=== PATIENT | female | born 1935 | race Caucasian/White ===

== ENCOUNTER 2016-10-12 06:09 | Inpatient (IN) | payer MEDICARE ==
--- NOTE | ~2016-10-12 | PRECARD ---
H&P [facility] [address] [facility] [place]. [address] NAME: SHEFALI LEE : 35 STATUS : ADM IN [facility]#: [id number] AGE: 81 ADM/REG DATE : 10/12/16 MR#: [id number] REPORT SERV DATE: 10/12/16 DICTATED BY: MERNA BRAR DATE: 10/12/16 REPORT STATUS : Draft TRANSCRIBED BY: JARED DATE: 10/12/16 DATE OF ADMISSION: 10/12/2016 HISTORY OF PRESENT ILLNESS: Ms Shefali Lee is an 81-year-old woman admitted through the emergency room, Cardiology was consulted for elevated troponin of 0.1. Ms Lee has had a long history of chronic systolic heart failure. She has had multiple admissions in the last several months for exacerbations of heart failure. Her ejection fraction is about 35%. She has mitral regurgitation, and reportedly "chronic elevation of her troponin." She came to the emergency room because of increasing dyspnea on exertion progressing to shortness of breath at rest, orthopnea and PND. She also describes palpitations, which have resolved. She had no chest discomfort. She had no stroke or stroke-like symptoms. She has had no recent bleeding. She denies melena or hematochezia. She was admitted through the emergency room, troponin was 0.1, the BNP is elevated. She has been made a [id number] and Palliative Care Service has been requested as well. She feels somewhat better since she had been admitted. She has no orthopnea or PND at this time. The history indicates she had atrial fibrillation. I have not seen any evidence of atrial fibrillation on telemetry or the EKGs that have been printed so far. PAST MEDICAL HISTORY: History of GI bleed, chronic kidney disease, hypertension, hyperlipidemia, gout, and dementia. SOCIAL HISTORY: She is , lives alone, no alcohol, no tobacco. FAMILY HISTORY: Noncontributory. MEDICINES: Lasix 60 daily, Amaryl, hydralazine 50 q.8 hours, Protonix, Tylenol, allopurinol, amlodipine 10 daily, aspirin, calcitriol, carvedilol 25 b.i.d., clopidogrel, and iron. REVIEW OF SYSTEMS: Complete review of systems was obtained, pertinent negative and unremarkable except as noted above and below. All systems addressed. PHYSICAL EXAMINATION: VITAL SIGNS: Blood pressure is about 170/70 on my exam, heart rate 90, oxygen saturation 92%. Temperature is 97.3. GENERAL: She appears chronically ill, she is quite angry about her weight in the emergency room, but is relatively easily consoled and reassured after I apologized, fully alert and oriented. HEENT: No xanthelasma; lips without cyanosis. H&P [address] [address] NAME: SHEFALI LEE : 35 STATUS : ADM IN PAT#: [id number] AGE: 81 ADM/REG DATE : 10/12/16 MR#: [id number] REPORT SERV DATE: 10/12/16 DICTATED BY: MERNA BRAR DATE: 10/12/16 REPORT STATUS : Draft TRANSCRIBED BY: JARED DATE: 10/12/16 LUNGS: Have occasional rales. CARDIOVASCULAR: A 2/6 murmur at the apex. ABDOMEN: Bowel sounds positive, normal activity, without tenderness, masses or hepatosplenomegaly. EXTREMITIES: No edema, cyanosis. SKIN: Normal turgor. MUSCULOSKELETAL: Normal muscle strength, without kyphosis/scoliosis. NEURO/PSYCH: Alert and oriented times 4, no apparent anxiety or depression. LABORATORIES: White count 10.9, hematocrit 33.5, and platelet count is 197. BUN is 24 and creatinine 2.36. BNP 1115. Troponin is 0.1 and 0.09. Telemetry, sinus rhythm. EKG is a sinus rhythm, IVCD with left anterior fascicular block and right bundle-branch block. Review of telemetry in the emergency room indicate sinus rhythm only. ASSESSMENT: Ms Lee is an 81-year-old woman with chronic systolic heart failure with exacerbation, acute on chronic. Her ejection fraction of 35%. Her creatinine is 2.36, the BNP is elevated at 1115. PLAN: 1. Obtain office records. 2. DVT prophylaxis. 3. Aggressive diuresis. 4. We will need to consider milrinone based upon her subsequent renal function. 5. Dr. Zhao has already requested palliative care and DNR status. 6. Hopefully, her symptoms will improve with more aggressive diuresis, again I will consider milrinone subsequently. Fortunately, she has been tolerating carvedilol. I will not use TRESSA inhibitor or ARB given her chronic kidney disease, with decreased creatinine clearance. REHANA/MODL Merna Brar M.D. / [id number] CC: Laurent Puentes MD
--- NOTE | ~2016-10-12 | DS ---
Discharge Summary [place] [address] [place]. [address] NAME: MEI LEE : 35 STATUS : ADM IN PAT#: [id number] AGE: 81 ADM/REG DATE : 10/12/16 MR#: [id number] REPORT SERV DATE: 10/14/16 DICTATED BY: ETTA JACKSON DATE: 10/14/16 REPORT STATUS : Draft TRANSCRIBED BY: MODL DATE: 10/14/16 ADMISSION DATE: 10/12/2016 DISCHARGE DATE: 10/14/2016 REASON FOR ADMISSION: Acute on chronic systolic heart failure exacerbation. HISTORY OF PRESENT ILLNESS: Please refer to Dr. Zhao's history and physical for complete details regarding the patient's admission. In brief, the patient was readmitted to the Hospitalist Service for her decompensated congestive heart failure. HOSPITAL COURSE: The patient had an uncomplicated hospital course. The patient has had multiple admissions since May. Dr. Zhao admitted the patient. Dr. Brar was consulted to help manage her congestive heart failure exacerbation. She was started on IV Bumex 1 mg three times a day. Dr. Zhao consulted Palliative Care given the frequency of admissions. Dr. Mancuso also met with the patient and the patient's daughter and talking about her frequent admissions. The patient and the patient's daughter have settled with hospice. She was diuresed adequately. Her CKD has been at her baseline even with aggressive diuresis. She is ambulating without any oxygen. She is requesting to go home today. She has reached maximal hospitalization. She will be discharged home in a stable condition with [facility]. DISCHARGE DIAGNOSES: Acute on chronic systolic heart failure exacerbation, now compensated atrial fibrillation, rate controlled; ischemic cardiomyopathy with an ejection fraction of 35%; chronic kidney disease stage 3/[address] Mendoza; dementia of Alzheimer's type; type 2 diabetes with hemoglobin A1c of around 6%. The patient will be discharged home today. We will ask case management to contact [facility] to initiate hospice when the patient arrives at home. DISCHARGE PROCEDURES: Consultation Dr. Sandro Brar with [facility], consultation Dr. Mancuso with Palliative Care. Chest x-ray. DISCHARGE MEDICATIONS: Include allopurinol 100 mg daily; Norvasc 10 mg daily; aspirin 81 mg daily; calcitriol 0.25 mcg daily; carvedilol 25 mg twice a day; Plavix 75 mg daily; ferrous sulfate 325 mg daily; glimepiride 2 mg daily, note the decreased from 4 as the patient's blood sugars have been in the 60s to 90s; Protonix 40 mg daily; hydralazine 50 mg every eight hours; Lasix 60 mg daily. This is Etta Jackson spending over 30 minutes on discharge plan and coordination of care. DARIN/JARED Etta Jackson MD Discharge Summary [address] [address] NAME: MEI LEE : 35 STATUS : ADM IN PAT#: [id number] AGE: 81 ADM/REG DATE : 10/12/16 MR#: [id number] REPORT SERV DATE: 10/14/16 DICTATED BY: ETTA JACKSON DATE: 10/14/16 REPORT STATUS : Draft TRANSCRIBED BY: JARED DATE: 10/14/16 / [id number] CC: MD Lazaro Fulton MD Hans E Yehnert, MD Melissa Phillips, M.D.
--- NOTE | ~2016-10-12 | HP ---
History And Physical [place] [address] [facility] [place]. [address] NAME: MEI LEE : 35 STATUS : ADM IN PAT#: [id number] AGE: 81 ADM/REG DATE : 10/12/16 MR#: [id number] REPORT SERV DATE: 10/12/16 DICTATED BY: ADENIKE GA DATE: 10/12/16 REPORT STATUS : Draft TRANSCRIBED BY: MODL DATE: 10/12/16 DATE OF ADMISSION: 10/12/2016 REASON FOR ADMISSION: Acute exacerbation of congestive heart failure with shortness of breath. HISTORY OF PRESENT ILLNESS: This is an 81-year-old white female who felt like she was not going to make it through the night. She had increasing shortness of breath and orthopnea. She called 911 around 4 a.m. because of orthopnea and shortness of breath. She has had a slight swelling of her lower extremities in the last couple of days. She was going to see Dr. Pro Mendoza with regard to her renal failure for an appointment and she has an appointment to see Dr. Lazaro Hall, also [facility] soon. She felt her heart was beating irregularly and certainly on the rhythm strip she does have some irregularity that appeared to be atrial fibrillation at least at first glance. There are numerous PACs and first-degree AV block, and PVCs noted on the rhythm strip as well. This is her third hospitalization for congestive heart failure since 05/2016. That is in the last four months. She left against medical advice during prior hospitalization. The patient has no trouble remembering her doctors names and times and places in the past although she denies any prior history of dementia. She still lives alone and does not take care of her checkbook any longer. PAST MEDICAL HISTORY: She was hospitalized with GI bleeding last 07/11 but left AMA. She had some shortness of breath and heme-positive stool. Subsequently had outpatient colonoscopy and EGD showing 5 mm polyp in the transverse colon, 3 smaller polyps, some diverticulosis, and EGD did show some gastritis but no terminal pathology was noted. She has an ejection fraction of 35% in an echocardiogram that was done back in May and she has been followed by Dr. Lazaro Hall. She has mitral regurgitation, chronic elevation of her troponin as well. She has type 2 diabetes but minimizes this saying it is borderline. She has chronic kidney disease, sees Dr. Pro Mendoza for this, history of hypertension, hyperlipidemia, history of gout and dementia. SOCIAL HISTORY: She lives alone, lives in [facility]. She has attended the [employer] in the past but usually does not go there but has some other adventism she visits around. She is . She lived in [place] remotely and developed a relationship with Dr. Gricelda العراقي at that time. She does not smoke cigarettes. Does not take any alcohol. FAMILY HISTORY: She is unable to recall any diseases that run in the family such as congestive heart failure, angina pectoris, atherosclerotic cardiovascular disease, diabetes or renal failure. MEDICATIONS: Home medications are reviewed that include the following: Furosemide 60 mg p.o. daily, Amaryl 4 mg p.o. daily, hydralazine 50 mg p.o. q.8 hours, pantoprazole 40 mg History And Physical [address] [address] NAME: MEI LEE : 35 STATUS : ADM IN PAT#: [id number] AGE: 81 ADM/REG DATE : 10/12/16 MR#: [id number] REPORT SERV DATE: 10/12/16 DICTATED BY: ADENIKE GA DATE: 10/12/16 REPORT STATUS : Draft TRANSCRIBED BY: JARED DATE: 10/12/16 p.o. daily, acetaminophen p.r.n. pain q.6 hours, allopurinol 100 mg p.o. daily, amlodipine 10 mg p.o. daily, aspirin 81 mg p.o. daily, Rocaltrol 0.25 mcg p.o. daily, carvedilol 25 mg p.o. b.i.d., clopidogrel 75 mg p.o. daily, and ferrous sulfate 325 p.o. daily. ALLERGIES: NONE KNOWN. REVIEW OF SYSTEMS: She denies any chest pain. She has had only shortness of breath, dyspnea on exertion. She does not wear oxygen at home. She has had some swelling of her lower extremities, recently that has come up. She has had no abdominal pain. No melena, hematemesis, fits, seizures, or convulsions. She has had no nausea, vomiting, or diarrhea. No hemoptysis. No tachycardia though she has noticed that her heart is beating irregularly now more than before. She minimizes her complaints and expects that she is going to live probably the next two to three years. She does express desire to not be resuscitated in the event of a natural comes. PHYSICAL EXAMINATION: GENERAL: Elderly white female, no acute distress. She has some periorbital edema. VITAL SIGNS: Her blood pressure 155/75 with a heart rate 72, respiratory rate 18, afebrile. HEENT: EOMI. Sclerae clear. Conjunctivae pink. NECK: No bruit in her thyroid. There is no obvious JVD in the supine position. CHEST: Clear bilaterally without dullness to percussion. HEART: Regular S1, S2 with multiple PACs and PVCs though the rhythm strip did appear to have atrial fibrillation on first examination. ABDOMEN: Soft and nontender. Bowel sounds positive. No HSM. No masses felt. EXTREMITIES: Have edema, 2+ pitting at the ankles bilaterally with trace dorsalis pedis and posterior tibial pulses. NEUROLOGIC: She withdraws to plantar stimulation. Dishing Machine Operator is symmetric bilaterally. Coordination is intact. She has no tremor. She is symmetric and equal neurologically bilaterally. LYMPHATICS: There is no adenopathy palpable. BREASTS: Grossly without mass. SKIN: Without rash, ecchymosis or bruising. LABORATORY DATA: EKG shows an interventricular conduction delay with nonspecific ST and T- wave changes. She has much movement artifact on this tracing and evidence of right bundle branch block and left axis deviation. There are Q-waves in V2 and 3 and when compared to the previous tracing in June, these Q-waves are not quite as prominent. Chest x-ray shows cardiomegaly. Previous echocardiogram showed ejection fraction of 35%. The BNP was 1115.1. Portable chest x-ray shows marked cardiomegaly. The troponin was 0.1 which had been elevated in the past. Her creatinine is 2.36. Sodium 144, potassium 4.1, chloride 111, glucose was 130, magnesium 1.9. Hemoglobin 10.8, hematocrit 33.5, white count 10.9, platelets 197. The BNP on 10/[address] Hall was 750. So it has increased since 10/06 and the creatinine was 2.88 then. ASSESSMENT: History And Physical [address] [place]. [address] NAME: MEI LEE : 35 STATUS : ADM IN PAT#: [id number] AGE: 81 ADM/REG DATE : 10/12/16 MR#: [id number] REPORT SERV DATE: 10/12/16 DICTATED BY: ADENIKE GA DATE: 10/12/16 REPORT STATUS : Draft TRANSCRIBED BY: MODL DATE: 10/12/16 1. Decompensation of chronic systolic congestive heart failure with increased edema. I wonder about compliance because of her seeming dementia. 2. Atrial fibrillation, observed on the monitor but not on close inspection with multiple PVCs and PACs, increasing cardiac arrhythmia. 3. Cardiomyopathy, ejection fraction 35%. 4. Chronic kidney disease, stage 3-[address] Pro Mendoza. 5. Dementia of the Alzheimer's type, likely progressive. 6. "Borderline" diabetes type 2. We will start sliding scale for this. 7. Chronic elevation of troponin with elevation today. We will repeat twice. I do see the Q-waves and the anterior septal leads and the right bundle-branch block. We will consult Dr. Hall as she appears to be going downhill. I discussed with her the end of life issues receiving the response that she did not want to be placed on artificial life support measures in the event of natural were to ensue. I attempted to explain the poor prognosis of three hospitalizations in the last 4 months with congestive heart failure with comorbid conditions of renal failure and increasing cardiac arrhythmia. This carries at least 50%, 1-year mortality in prognosis with it. She expects to live about two more years at least she says. I am going to have Palliative Care see the patient to help with planning for this and also engage Dr. Hall in this poor prognosis and adjustments of medication for palliative reasons. I am going to increase the diuretics to 40 mg p.o. b.i.d., recheck a BMP in the morning, see if the renal failure would worsen with that. SALVADOR/JARED Adenike Ga M.D. / [id number] CC: MD Lazaro Fulton MD Hans E Yehnert, MD Melissa Phillips, M.D.
[~2016-10-12 06:09] MED LIST: 8 HOUR650 MG PO; AMARYL4 PO; APRES50 PO; ASAB PO; CEFT5 PO; CELEXA20 PO; COREG12 PO; COREG25 PO; COREG3 PO; DARCALMA PO; DSS PO; EXFORGE1 TA1 PO; FERROUS SULF325 M1 PO; FISH-EPA1000 MG PO; HCTZ25B PO; HYDROCHLOROT25 MG PO; L20 PO; L40 PO; L80 PO; LANTUS SC; LIPITOR40 PO; MACROBID PO; MELA3 PO; MULTIVITAMI1 PO; NORV10 PO; NOVOLOGMIX SC; PEP20 PO; PLAVIX PO; POTASSIUM; PROTONIX PO; ROCALTROL0.25 MCG PO; T PO; VITAMIN D31000 UNIT PO; Z100 PO; ZITHROMAX500 MG PO; ZOCOR40 PO
[2016-10-12 06:37] LABS: BASOPHILS 0.6 %; BASOPHILS ABSOLUTE 0.06 10/3/uL (0.0-0.16); EOSINOPHILS 3.7 %; HEMATOCRIT 33.5 % (36.0-48.0); HEMOGLOBIN 10.8 g/dL (12.0-16.0); IMMATURE GRANULOCYTES 0.3 %; IMMATURE GRANULOCYTES ABSOLUTE 0.03 10/3/uL (0.0-0.11); LYMPHOCYTES 11.1 %; LYMPHOCYTES ABSOLUTE 1.21 10/3/uL (0.67-4.30); MEAN CORPUS HGB CONC 32.2 g/dL (32.0-36.0); MEAN CORPUSCULAR HEMOGLOB 30.1 pg (26.0-34.0); MEAN CORPUSCULAR VOLUME 93.3 fL (80-100); MONOCYTES 5.8 %; MONOCYTES ABSOLUTE 0.63 10/3/uL (0.21-1.20); NEUTROPHILS 78.5 %; NEUTROPHILS ABSOLUTE 8.53 10/3/uL (2.02-8.40); PLATELET COUNT 197 10/3/uL (150-400); RBC DISTRIBUTION WIDTH 14.2 % (12.0-16.0); RED CELL COUNT 3.59 10/6/uL (4.0-5.6)
[2016-10-12 06:39] LABS: INTERNATIONAL NORMAL RATI 0.9 UNITS (-); PARTIAL THROMBO TIME 24.7 SEC (22.5-37.2); PROTIME (NOT ORD) 12.4 SEC (12.0-14.5)
[2016-10-12 06:42] LABS: MANUAL DIFF NO %; WHITE BLOOD CELLS 10.9 10/3/uL (4.5-10.5)
[2016-10-12 06:43] LABS: ER CBC TAT 0 Hrs 12 Mins
[2016-10-12 06:51] LABS: CALCIUM, SERUM 9.2 MG/DL (8.5-10.4); CHLORIDE, SERUM 111 MMOL/L (96-112); CO2 (CARBON DIOXIDE) 24 MMOL/L (24-34); GLUCOSE, SERUM 130 MG/DL (60-99); POTASSIUM, SERUM 4.1 MMOL/L (3.5-5.3); SODIUM, SERUM 144 MMOL/L (135-148)
[2016-10-12 06:53] LABS: BUN (BLOOD UREA NITROGEN) 24 MG/DL (6-23); CHEST PAIN PROFILE TAT 0 Hrs 23 Mins; CREATININE 2.36 MG/DL (0.55-1.02); GFR AFRICAN AMERICAN 22 ML/MIN (>=60); GFR NON AFRICAN AMERICAN 19 ML/MIN (>=60)
[2016-10-12] MEDS ORDERED: Z100 PO (07:42)
[2016-10-12] MEDS ORDERED: NORV10 PO (07:42)
[2016-10-12] MEDS ORDERED: T PO (07:42)
[2016-10-12] MEDS ORDERED: HALF81 PO (07:42)
[2016-10-12] MEDS ORDERED: AMARYL4 PO (07:43)
[2016-10-12] MEDS ORDERED: COREG25 PO (07:43)
[2016-10-12] MEDS ORDERED: PLAVIX PO (07:43)
[2016-10-12] MEDS ORDERED: ROCALTROL 0.0.25 MCG PO (07:43)
[2016-10-12] MEDS ORDERED: FERROUS SULF325 M1 PO (07:43)
[2016-10-12] MEDS ORDERED: L20 PO (07:43)
[2016-10-12] MEDS ORDERED: APRES50 PO (07:44)
[2016-10-12] MEDS ORDERED: PROTONIX PO (07:44)
[2016-10-12 13:07] LABS: TROPONIN I 0.09 NG/ML (<0.05)
[2016-10-12 15:47] LABS: ULTRASENSITIVE TSH 2.12 MCIU/ML (0.358-3.740)
[2016-10-13 06:39] LABS: BASOPHILS 1.3 %; BASOPHILS ABSOLUTE 0.07 10/3/uL (0.0-0.16); EOSINOPHILS ABSOLUTE 0.31 10/3/uL (0.0-0.53); HEMATOCRIT 31.4 % (36.0-48.0); HEMOGLOBIN 10.2 g/dL (12.0-16.0); IMMATURE GRANULOCYTES 0.2 %; IMMATURE GRANULOCYTES ABSOLUTE 0.01 10/3/uL (0.0-0.11); LYMPHOCYTES 23.5 %; LYMPHOCYTES ABSOLUTE 1.22 10/3/uL (0.67-4.30); MEAN CORPUS HGB CONC 32.5 g/dL (32.0-36.0); MEAN CORPUSCULAR HEMOGLOB 30.2 pg (26.0-34.0); MEAN CORPUSCULAR VOLUME 92.9 fL (80-100); MEAN PLATELET VOLUME 12.2 fL (9.2-13.0); MONOCYTES 9.4 %; MONOCYTES ABSOLUTE 0.49 10/3/uL (0.21-1.20); NEUTROPHILS 59.6 %; NEUTROPHILS ABSOLUTE 3.09 10/3/uL (2.02-8.40); PLATELET COUNT 170 10/3/uL (150-400); RBC DISTRIBUTION WIDTH 14.2 % (12.0-16.0); RED CELL COUNT 3.38 10/6/uL (4.0-5.6)
[2016-10-13 06:45] LABS: MANUAL DIFF NO %; WHITE BLOOD CELLS 5.2 10/3/uL (4.5-10.5)
[2016-10-13 06:57] LABS: BUN (BLOOD UREA NITROGEN) 27 MG/DL (6-23); CHLORIDE, SERUM 110 MMOL/L (96-112); CO2 (CARBON DIOXIDE) 28 MMOL/L (24-34); CREATININE 2.34 MG/DL (0.55-1.02); GFR AFRICAN AMERICAN 22 ML/MIN (>=60); GFR NON AFRICAN AMERICAN 19 ML/MIN (>=60); POTASSIUM, SERUM 3.7 MMOL/L (3.5-5.3); SODIUM, SERUM 145 MMOL/L (135-148)
[2016-10-13 06:59] LABS: GLUCOSE, SERUM 61 MG/DL (60-99); TROPONIN I 0.11 NG/ML (<0.05)
[2016-10-14 07:22] LABS: BUN (BLOOD UREA NITROGEN) 38 MG/DL (6-23); CALCIUM, SERUM 8.6 MG/DL (8.5-10.4); CHLORIDE, SERUM 106 MMOL/L (96-112); CO2 (CARBON DIOXIDE) 26 MMOL/L (24-34); GFR AFRICAN AMERICAN 19 ML/MIN (>=60); GFR NON AFRICAN AMERICAN 17 ML/MIN (>=60); GLUCOSE, SERUM 75 MG/DL (60-99); PHOSPHORUS, SERUM 3.7 MG/DL (2.5-4.5); POTASSIUM, SERUM 3.8 MMOL/L (3.5-5.3); SODIUM, SERUM 143 MMOL/L (135-148)
== END 2016-10-14 11:53 | disposition hospice, home (50) | DRG 291 ==
LOC: ER 06:09 → 7NO 09:54
PROVIDERS: Internal Medicine; Specialist
DX: I13.0 Hypertensive heart and chronic kidney disease with heart failure and stage 1 through stage 4 chronic kidney disease, or unspecified chronic kidney disease (principal); I50.23 Acute on chronic systolic (congestive) heart failure; N18.4 Chronic kidney disease, stage 4 (severe); I42.9 Cardiomyopathy, unspecified; E11.22 Type 2 diabetes mellitus with diabetic chronic kidney disease; G30.9 Alzheimer's disease, unspecified; F02.80 Dementia in other diseases classified elsewhere, unspecified severity, without behavioral disturbance, psychotic disturbance, mood disturbance, and anxiety; I48.91 Unspecified atrial fibrillation; E78.5 Hyperlipidemia, unspecified; I34.0 Nonrheumatic mitral (valve) insufficiency; Z79.82 Long term (current) use of aspirin; Z79.02 Long term (current) use of antithrombotics/antiplatelets; Z79.899 Other long term (current) drug therapy; Z86.010 Personal history of colon polyps
CPT/HCPCS: 71010; 80048; 82962; 83735; 83880; 84100; 84443; 84484; 85025; 85610; 85730; 93005; 99285; A9270-GY; J1940